=== PATIENT | male | born 1970 | race Two or more races ===

== ENCOUNTER 2020-03-11 10:56 | Inpatient (IN) | payer MEDICAID, SELFPAY ==
[~2020-03-11] VITALS: Ht 180.3 cm; Wt 96.3 kg
[2020-03-11] MEDS ORDERED: AZITHROMYCIN 500MG/ 250ML 250 ML IV ONE ×2 (11:20→11:30)
[2020-03-11] MEDS ORDERED: SODIUM CHLORIDE 0.9% 1,000 ML IV ONE (11:30)
[2020-03-11] MEDS ORDERED: ASCORBIC ACID 500 MG TAB ONE (11:34)
[2020-03-11] MEDS ORDERED: ASCORBIC ACID 500 MG TAB PO ONE ×2 (11:45→13:15)
[2020-03-11] MEDS ORDERED: hydrOXYchloroQUINE SULFATE 200 MG TAB PO ONE (11:45)
[2020-03-11] MEDS ORDERED: ZINC SULFATE 220mg CAP or TAB PO ONE ×2 (11:45→13:15)
[2020-03-11 11:56] LABS: Basophils # (auto) 0 10 ^3/uL (0-0.2); Basophils % (auto) 0.4 % (0.0-2.0); Eosinophils # (auto) 0 10 ^3/uL (0-0.8); Hematocrit 46.1 % (41.0-53.0); Hemoglobin 15.2 g/dL (13.5-17.5); Lymphocytes # (auto) 0.9 10 ^3/uL (0.4-5.4); Lymphocytes % (auto) 12.4 % (10.0-50.0); Mean Corpuscular Hemoglobin 29.1 pg (28.0-32.0); Mean Corpuscular Hgb Conc. 33.1 g/dL (32.0-36.0); Mean Corpuscular Volume 88.1 fL (80.0-100.0); Monocytes # (auto) 0.5 10 ^3/uL (0-1.3); Monocytes % (auto) 7.1 % (0.0-12.0); Neutrophils % (auto) 80.1 % (37.0-80.0); Nucleated Red Blood Cells % 0.4 %; Platelet Count (auto) 254 10^3/uL (140-450); Red Blood Cells 5.23 10^6/uL (4.5-5.90); Red Cell Distribution Width 13.5 % (11.8-14.3); White Blood Cell 7.5 10^3/uL (4.4-10.8)
[2020-03-11 12:06] LABS: Albumin 3.2 g/dL (3.4-5.0); Calcium 8.5 mg/dL (8.5-10.1); Potassium 3.6 mmol/L (3.5-5.1)
[2020-03-11 12:09] LABS: Bilirubin, Total 0.9 mg/dL (0.2-1.0); Total Protein 8.2 g/dL (6.4-8.2)
[2020-03-11 12:28] LABS: CRP High Sensitivity 12.6 mg/dL (< 0.3)
[2020-03-11] MEDS ORDERED: ACETAMINOPHEN 500 MG TAB PO PRN (12:45)
[2020-03-11] MEDS ORDERED: MORPHINE SULF INJ 2 MG/ML SYRINGE 1ML IV PRN (12:45)
[2020-03-11] MEDS ORDERED: ALBUTEROL SULF HFA 90MCG INH 200DOSE IN PRN (12:45)
[2020-03-11] MEDS ORDERED: NITROGLYCERIN 0.4 MG SL TAB SL PRN (12:45)
[2020-03-11] MEDS ORDERED: CHOLECALCIFEROL (VITD3) 1,000UNIT=25mCg TAB PO ONE (13:15)
[2020-03-11] MEDS ORDERED: AZITHROMYCIN 500MG/D5WorNS 250ml IV ONE (13:15)
[2020-03-11] MEDS ORDERED: ENOXAPARIN SOD 40 MG/0.4 ML SYRINGE SC ONE (13:15)
--- NOTE | 2020-03-11 13:36 | NUR ---
PT ASSESSED FOR MDI THERAPY. PT IS CURRENTLY ON 2LNC, SPO2 95%, HR 110, RR 16. LUNGS ARE CLEAR AND DECREASED. PT STATES HE DOES NOT TAKE RESPIRATORY MEDICATION AT HOME. PT DOES NOT WEAR HOME O2. PT STATES HE DOES NOT HAVE HISTORY OF RESPIRATORY DISEASES.
[2020-03-11] MEDS ORDERED: ALBUTEROL SULF HFA 90MCG INH 200DOSE IN SCH (14:00)
--- NOTE | 2020-03-11 14:15 | NUR ---
Telemetry admit from ER JARED [place]INGHAM admitted to Telemetry unit after SBAR received. Patient oriented to Pushpa Dubois, primary RN, unit, room, bed, and unit policies regarding patient care. Patient now on continuous telemetry monitoring, tele box #4 and telemetry reading on arrival to unit is SR @ 92. Patient placed on bedside oxygen 2L/NC. No s/s of sob/distress noted. Safety precautions in place, bed set lowest position/locked, bedside rails up x2, call light within reach. Instructed patient to call for assistance. Patient verbalized understanding. Will continue to monitor Q1hr and PRN.
[2020-03-11 17:00] VITALS: BP 132/87
--- NOTE | 2020-03-11 19:20 | NUR ---
ASSUMED CARE OF PATIENT: PATIENT IS AWAKE, ALERT AND ORIENTED X4, NO S/S OF SOB OR DISTRESS AND PT DENIES PAIN. RESPIRATIONS ARE EVEN AND UNLABORED, O2 SATURATIONS ARE 94% ON 2 L NC, PATIENT CONNECTED TO CONTINUOUS PULSE OXIMETRY MONITOR AND CARDIAC TELE MONITOR, TELE BOX #4 WITH CURRENT READING OF 81 BPM. BED IS LOW, LOCKED, TWO SIDE RAILS RAISED AND CALL LEWIS IS WITHIN REACH. PROVIDED EDUCATION REGARDING CALL LIGHT AND INCENTIVE SPIROMETRY WELL INSTRUCTED PATIENT ON POC AND TO CALL FOR ASSISTANCE. PATIENT VERBALIZED UNDERSTANDING. WILL CONTINUE TO MONITOR Q 1HR AND PRN.
--- NOTE | 2020-03-11 19:50 | NUR ---
FAMILY MEMBER CALLED TO SPEAK TO PRIMARY RN: SISTER MURALI CALLED AND PROVIDED PASSWORD AND REQUESTED INFORMATION REGARDING PATIENTS POC AND CURRENT HEALTH STATUS. 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
[2020-03-11 20:00] VITALS: BP 129/90
--- NOTE | 2020-03-12 06:37 | NUR ---
Respiratory note: PT AWAKE, AND ALERT. SPO2 92% ON 2 L NC, HR 84, RR 18, BS DIMINISHED. RESPIRATORY INTERVENTION NOT INDICATED. WILL CONTINUE TO MONITOR PT.
[2020-03-12 07:14] LABS: Basophils # (auto) 0 10 ^3/uL (0-0.2); Basophils % (auto) 0.6 % (0.0-2.0); Eosinophils # (auto) 0 10 ^3/uL (0-0.8); Hematocrit 42.3 % (41.0-53.0); Hemoglobin 14.4 g/dL (13.5-17.5); Lymphocytes # (auto) 0.9 10 ^3/uL (0.4-5.4); Lymphocytes % (auto) 15.1 % (10.0-50.0); Mean Corpuscular Hemoglobin 29.8 pg (28.0-32.0); Mean Corpuscular Volume 87.7 fL (80.0-100.0); Monocytes # (auto) 0.8 10 ^3/uL (0-1.3); Monocytes % (auto) 14.4 % (0.0-12.0); Neutrophils % (auto) 69.9 % (37.0-80.0); Nucleated Red Blood Cells % 0.1 %; Platelet Count (auto) 237 10^3/uL (140-450); Red Blood Cells 4.82 10^6/uL (4.5-5.90); Red Cell Distribution Width 13.9 % (11.8-14.3); White Blood Cell 5.7 10^3/uL (4.4-10.8)
--- NOTE | 2020-03-12 07:30 | NUR ---
OPENING NOTES ASSUMED CARE OF PATIENT. PATIENT ALERT AND ORIENTED, RESTING ON BED. CONTINUES PULSE OX MONITORING, O2 SATURATION 94% ON ROOM AIR. NO S/S OF SOB/DISTRESS NOTED. PATIENT DENIES ANY PAIN. SAFETY PRECAUTIONS IN PLACE. BED SET TO LOWEST POSITION/LOCKED. BEDSIDE RAILS UP X2. CALL LIGHT WITHIN REACH. INSTRUCTED PATIENT TO CALL FOR ASSISTANCE. UPDATED ON POC. PATIENT VERBALIZED UNDERSTANDING. WILL CONTINUE TO MONITOR Q1HR AND PRN.
[2020-03-12 07:37] LABS: Albumin 2.7 g/dL (3.4-5.0); BUN/Creatinine Ratio 12.8; Calcium 8.1 mg/dL (8.5-10.1); Potassium 3.6 mmol/L (3.5-5.1)
[2020-03-12 07:40] LABS: Bilirubin, Total 0.6 mg/dL (0.2-1.0); Total Protein 7.1 g/dL (6.4-8.2)
[2020-03-12 09:00] VITALS: BP 129/86
[2020-03-12] MEDS: ZINC SULFATE 220mg CAP or TAB PO SCH (09:23)
[2020-03-12] MEDS: cefTRIAXone 1GM/50ML D5W 50 ML IV SCH (09:23)
[2020-03-12] MEDS: ASCORBIC ACID 500 MG TAB PO SCH (09:24)
[2020-03-12] MEDS: CHOLECALCIFEROL (VITD3) 1,000UNIT=25mCg TAB PO SCH (09:24)
[2020-03-12] MEDS: ENOXAPARIN SOD 40 MG/0.4 ML SYRINGE SC SCH (09:28)
[2020-03-12] MEDS ORDERED: AZITHROMYCIN 500MG/D5WorNS 250ml IV SCH ×2 (10:00)
[2020-03-12] MEDS ORDERED: ENOXAPARIN SOD 40 MG/0.4 ML SYRINGE SC SCH (10:00)
[2020-03-12] MEDS ORDERED: CHOLECALCIFEROL (VITD3) 1,000UNIT=25mCg TAB PO SCH (10:00)
[2020-03-12 13:00] VITALS: BP 128/88
--- NOTE | 2020-03-12 14:20 | NUR ---
URINE SAMPLE URINE SAMPLE COLLECTED AND SENT TO LAB.
--- NOTE | 2020-03-12 15:19 | NUR ---
COVID SWAB PATIENT WAS RE-SWABBED BY FORREST SMITH AND AND SENT TO LAB WITH FORREST SMITH.
[2020-03-12 17:00] VITALS: BP 118/88
--- NOTE | 2020-03-12 19:29 | NUR ---
Opening Shift Note Assumed care of patient, awake and alert x 4. No S/S of distress/SOB.Patient on 2 l/min NC with some mild shortness of breath. Bed is in lowest position and locked. Call light within reach. Board upsate. Instructed on POC and to callfor assist PRN, will continue to monitor for changes Q1hr and PRN.
[2020-03-12 21:00] VITALS: BP 124/88
[2020-03-13 05:00] VITALS: BP 126/86
[2020-03-13 09:00] VITALS: BP 114/83
[2020-03-13] MEDS: cefTRIAXone 1GM/50ML D5W 50 ML IV SCH (10:10)
[2020-03-13] MEDS: ZINC SULFATE 220mg CAP or TAB PO SCH (10:11)
[2020-03-13] MEDS: ASCORBIC ACID 500 MG TAB PO SCH (10:15)
[2020-03-13] MEDS: ENOXAPARIN SOD 40 MG/0.4 ML SYRINGE SC SCH (10:16)
[2020-03-13] MEDS: AZITHROMYCIN 250 MG TAB PO SCH (10:16)
[2020-03-13] MEDS: CHOLECALCIFEROL (VITD3) 1,000UNIT=25mCg TAB PO SCH (10:16)
[2020-03-13 17:00] VITALS: BP 123/84
[2020-03-13 20:00] VITALS: BP 123/84
--- NOTE | 2020-03-13 20:04 | NUR ---
OPENING NOTES ASSUMED CARE OF PATIENT. PATIENT ALERT AND ORIENTED, AND EATING. CONTINUES PULSE OX MONITORING, O2 SATURATION 94% ON ROOM AIR. PATIENT EDUCATED ON PLACING OXYGEN BACK ON IF SOB NO S/S OF SOB/DISTRESS NOTED. PATIENT DENIES ANY PAIN. TEMPERATURE VIA AXILLARY 98.6.SAFETY PRECAUTIONS IN PLACE. BED SET TO LOWEST POSITION/LOCKED. BEDSIDE RAILS UP X2. CALL LIGHT WITHIN REACH. INSTRUCTED PATIENT TO CALL FOR ASSISTANCE. UPDATED ON POC. PATIENT VERBALIZED UNDERSTANDING. WILL CONTINUE TO MONITOR Q1HR AND PRN.
--- NOTE | 2020-03-13 21:49 | NUR ---
PATIENT EDUCATED ON HOW TO IS PATIENT VERBALIZED UNDERSTANDING
[2020-03-13 22:21] VITALS: BP 126/84
[2020-03-14 02:06] VITALS: BP 129/90
[2020-03-14 05:00] VITALS: BP 125/79
--- NOTE | 2020-03-14 07:00 | NUR ---
Opening Shift Note Received report on the patient. Awake lying in bed. Patient shows no signs of distress at this time. Discussed plan of care with the patient. Bed in lowest position, side rails up x2, and the call light is within reach. Will continue to monitor.
--- NOTE | 2020-03-14 07:05 | NUR ---
ENTERED ROOM TO ASSESS PATIENT. PATIENT VERBALIZED NO DISTRESS SOB OR PAIN. PATIENT IS USING THE RESTROOM
--- NOTE | 2020-03-14 07:26 | NUR ---
REPORT GIVEN TO DAYSHIFT RN. PATIENT DENIES SOB DISTRESS OR PAIN.
[2020-03-14 09:30] VITALS: BP 121/87
[2020-03-14] MEDS: ZINC SULFATE 220mg CAP or TAB PO SCH (10:36)
[2020-03-14] MEDS: cefTRIAXone 1GM/50ML D5W 50 ML IV SCH (10:36)
[2020-03-14] MEDS: ASCORBIC ACID 500 MG TAB PO SCH (10:36)
[2020-03-14] MEDS: AZITHROMYCIN 250 MG TAB PO SCH (10:37)
[2020-03-14] MEDS: CHOLECALCIFEROL (VITD3) 1,000UNIT=25mCg TAB PO SCH (10:37)
[2020-03-14] MEDS: ENOXAPARIN SOD 40 MG/0.4 ML SYRINGE SC SCH (10:37)
[2020-03-14 13:01] VITALS: BP 138/96
[2020-03-14 17:45] VITALS: BP 123/89
--- NOTE | 2020-03-14 19:30 | NUR ---
OPENING SHIFT NOTE: ASSUMED CARE OF PATIENT, HE IS AWAKE, ALERT AND ORIENTED X 4. NO S/S OF SOB OR DISTRESS AND PATIENT DENIES PAIN. PATIENT CONNECTED TO CONTINUOUS TELEMETRY AND O2 MONITORING, CURRENT READING IS HR 86 BPM, AND O2 93% ON 2 L NC. RESPIRATIONS ARE EVEN AND UNLABORED. CLUSTER CARE GIVEN USING PROVIDED PPE AND SAFETY MEASURES IN PLACE. BED IS LOW, LOCKED, TWO SIDE RAILS RAISED, AND CALL LEWIS IS WITHIN REACH. INSTRUCTED PT ON POC AND TO CALL IF HE NEEDS ANYTHING, PATIENT VERBALIZED UNDERSTANDING. WILL CONTINUE TO MONITOR Q 1HR AND PRN.
[2020-03-14 20:00] VITALS: BP 140/92
--- NOTE | 2020-03-14 23:33 | NUR ---
PATIENT REMOVED NASAL CANULA TO GO TO THE BATHROOM AND O2 SATURATION DROPPED TO 86%, INSTRUCTED PATIENT TO PLACE NASAL CANULA BACK IN NOSTRILS, O2 IS NOW BACK UP TO 91% ON 2 L NC. WILL CONTINUE TO MONITOR.
[2020-03-15] VITALS: BP 121/86
[2020-03-15 04:00] VITALS: BP 127/88
--- NOTE | 2020-03-15 06:48 | NUR ---
Respiratory note: ASSESSED PT IN PROPER PPE. PT IS AWAKE AND ALERT. NO S/S OF RESPIRATORY DISTRESS. PT SPO2 94% ON 1 L NASAL CANNULA, HR 77, RR 16. WILL CONTINUE TO MONITOR PT.
[2020-03-15 09:00] VITALS: BP 123/86
[2020-03-15] MEDS: cefTRIAXone 1GM/50ML D5W 50 ML IV SCH (10:51)
[2020-03-15] MEDS: ZINC SULFATE 220mg CAP or TAB PO SCH (10:51)
[2020-03-15] MEDS: ASCORBIC ACID 500 MG TAB PO SCH (10:52)
[2020-03-15] MEDS: ENOXAPARIN SOD 40 MG/0.4 ML SYRINGE SC SCH (10:52)
[2020-03-15] MEDS: AZITHROMYCIN 250 MG TAB PO SCH (10:52)
[2020-03-15] MEDS: CHOLECALCIFEROL (VITD3) 1,000UNIT=25mCg TAB PO SCH (10:52)
[2020-03-15 13:00] VITALS: BP 129/94
--- NOTE | 2020-03-15 14:19 | NUR ---
assessment Patient is a 49 year old male who is alert and oriented. Patients cognitive abilities are intact. Prior to admission patient lived home with family and functioned independently. Patient informed me he is able to care for his own ADLs. Per patient he will return home to his prior living arrangements post discharge and family will transport him home. Patient informed me he was having shortness of breath and came to ER and was admitted. Patient is Covid 19 positive. Patients PCP is Dr Morocho. Patient has no safety concerns regarding returning home on discharge. Patient may need home 02 on discharge. I informed patient he has a right to speak to a child welfare social worker regarding all care. I informed patient he has a right to participate in any and all discharge planning. Patient does not have a POA and advanced directive. I have offered patient information on POA and advanced directives. I informed the patient the advantages and benefits of having an Advanced Directive. Patient verbalized understanding and agreed to discharge plan. Addendum: 03/15/20 at 1433 by Candelaria SHARMA Amended: Links added.
--- NOTE | 2020-03-15 19:20 | NUR ---
OPENING SHIFT NOTE: PATIENT IS AWAKE, ALERT, AND ORIENTED X4, SITTING UP IN BED WITHOUT HIS NASAL CANULA IN, O2 SATS AT 88%. NASAL CANULA PLACED BACK ON PATIENT AND O2 SATS ARE NOW 92% ON 2L. NO S/S OF DISTRESS/SOB. CLUSTER CARE PROVIDED IN PROVIDED PPE. SAFETY MEASURES IMPLEMENTED, BED IS LOW, LOCKED, TWO SIDE RAILS RAISED, AND CALL LEWIS WITHIN REACH. INSTRUCTED ON POC AND TO CALL IF HE NEEDS ANYTHING, PATIENT VERBALIZED UNDERSTANDING. WILL CONTINUE TO MONITOR Q 1HR AND PRN.
[2020-03-15 20:00] VITALS: BP 123/90
--- NOTE | 2020-03-15 23:30 | NUR ---
SISTER CALLED AND PROVIDED PASSWORD, ASKED ABOUT POC AND WHEN PATIENT WOULD BE DISCHARGED. SHE INFORMED ME THAT THEY ARE TRYING TO FIGURE OUT WHERE HE WILL STAY WHEN HE GOES HOME AND THEY DON'T HAVE ANYONE TO PICK HIM UP OR A PLACE FOR HIM TO STAY UNTIL MONDAY 03/19.
[2020-03-16] VITALS: BP 144/99
--- NOTE | 2020-03-16 | NUR ---
PATIENT RESTING COMFORTABLY, RESPIRATIONS ARE EVEN, UNLABORED, AND O2 SATURATION IS AT 90% ON 2L NC.
[2020-03-16 04:00] VITALS: BP 136/95
[2020-03-16 08:00] VITALS: BP 144/95
[2020-03-16] MEDS: cefTRIAXone 1GM/50ML D5W 50 ML IV SCH (08:15)
--- NOTE | 2020-03-16 08:30 | NUR ---
Received pt resting in bed, call light within reach, pt reports feeling better, no pain noted or reported at this time, will continue to monitor pt.
[2020-03-16] MEDS: ZINC SULFATE 220mg CAP or TAB PO SCH (09:31)
[2020-03-16] MEDS: AZITHROMYCIN 250 MG TAB PO SCH (09:31)
[2020-03-16] MEDS: CHOLECALCIFEROL (VITD3) 1,000UNIT=25mCg TAB PO SCH (09:31)
[2020-03-16] MEDS: ASCORBIC ACID 500 MG TAB PO SCH (09:32)
[2020-03-16] MEDS: ENOXAPARIN SOD 40 MG/0.4 ML SYRINGE SC SCH (09:32)
[2020-03-16 12:00] VITALS: BP 135/93
--- NOTE | 2020-03-16 15:27 | NUR ---
Nutrition Assessment Notes Please refer to link for full assessment notes. Est energy needs: [id number] kcals (22-25 kcal/kgIBW) Est protein needs: 97-129 gms/day (1.2-1.6 gm/kgBW) Will continue to monitor and reassess prn. Addendum: 03/16/20 at [address] Amended: Links added.
[2020-03-16 17:00] VITALS: BP 135/90
--- NOTE | 2020-03-16 19:20 | NUR ---
Opening Shift Note Assumed care of patient, awake and alert. No S/S of distress/SOB or pain. Bed in lowest locked position, side rails up x2, call light within reach, COVID [address]. Instructed on POC and to call for assist PRN, will continue to monitor for changes Q1hr and PRN. Addendum: 03/16/20 at 2246 by NOLBERTO SHARMA RN RN ADDITION: Patient educated on use of incentive spirometer, patient verbalized understanding. Will continue to enforce education throughout shift and continue to monitor.
[2020-03-16 21:00] VITALS: BP 150/69
[2020-03-17] VITALS: BP 121/76
[2020-03-17 05:00] VITALS: BP 138/95
--- NOTE | 2020-03-17 05:00 | NUR ---
Nasal cannula removed while patient sleeping throughout shift, patient's oxygen saturation 86% - 90% on room air during those times. Patient educated on importance of keeping nasal cannula on, oxygenation at 90% - 93% with nasal cannula on. No s/s of distress. Will continue to monitor.
--- NOTE | 2020-03-17 06:34 | NUR ---
Closing Note Patient lying in bed, awake and alert. No s/s of distress. Bed in lowest locked position, side rails up x2, call light within reach, COVID [address] Oxygen saturation at 92%. Will continue to monitor and endorse care to dayshift RN.
--- NOTE | 2020-03-17 08:00 | NUR ---
OPENING SHIFT NOTE: PATIENT RESTING IN BED HIGH FOWLERS. ALERT AND ORIENTED X4. PATIENT DENIES SOB AND DISTRESS AT THIS TIME. PATIENT UPDATED ON POC. BED IN LOWEST LOCKED POSITION WITH CALL LIGHT WITHIN REACH. WILL CONTINUE CARE.
--- NOTE | 2020-03-17 08:15 | NUR ---
PATIENT OFF OXYGEN INSTRUCTED TO AMBULATE IN ROOM.
[2020-03-17 09:00] VITALS: BP 137/93
[2020-03-17] MEDS: cefTRIAXone 1GM/50ML D5W 50 ML IV SCH (09:23)
[2020-03-17] MEDS: CHOLECALCIFEROL (VITD3) 1,000UNIT=25mCg TAB PO SCH (09:24)
[2020-03-17] MEDS: AZITHROMYCIN 250 MG TAB PO SCH (09:24)
[2020-03-17] MEDS: ENOXAPARIN SOD 40 MG/0.4 ML SYRINGE SC SCH (09:24)
[2020-03-17] MEDS ORDERED: MULTIPLE VITAMINS W/ MINERALS TAB PO SCH (10:00)
[2020-03-17] MEDS ORDERED: metroNIDAZOLE 500 MG TAB PO ONE (14:30)
--- NOTE | 2020-03-17 14:34 | NUR ---
SPOKE TO Davidson SHEPARD OVER THE PHONE REGARDING PATIENT STATUS. INFORMED PATIENT HAS BEEN OFF OXYGEN SINCE THIS MORNING SATURATING 90-94%.
--- NOTE | 2020-03-17 16:36 | NUR ---
PER Davidson ASTUDILLO TO SEND PATIENT HOME WITHOUT OXYGEN AND NO NEW PRESCRIPTIONS.
--- NOTE | 2020-03-17 16:37 | NUR ---
Discharge instructions given as ordered. Encourage to follow up with PMD as instructed. Instructed to self-isolate for 4 weeks. Provided with covid-19 forms. All questions and concerns addressed. Patient verbalized understanding. Medication reconciliation form completed and copy given to patient. iv discontinued. patient tolerated well. site is free of any redness or warmth. catheter intact. pressure dressing applied. Telemetry unit returned to ICU. Patient taken to vehicle via wheelchair with all personal belongings, accompanied by staff and family member. No distress noted at time of departure.
[2020-03-17] MEDS ORDERED: metroNIDAZOLE 500 MG TAB PO SCH (22:00)
--- NOTE | 2020-03-19 08:52 | NUR ---
Weekend director loss prevention-I received a phone call from Dr. Loera letting me know that this patient will need home oxygen for 2 weeks due to being COVID-19 + . I called [facility] and was told that they do still require that an ABG be done to qualify patient for home oxygen. Received a message from Dr. Loera that patient is actually now weaned off oxygen and can go home without it.
== END 2020-03-17 16:38 | disposition home or self-care (01) | DRG 720 ==
LOC: ER 10:56 → TELE 10:57 → TELE-EAST 14:16
PROVIDERS: ADMIT Nurse Practitioner Acute Care; ATTEND Internal Medicine Nephrology
DX: A41.9 Sepsis, unspecified organism (principal); U07.1 COVID-19; J96.01 Acute respiratory failure with hypoxia; R65.20 Severe sepsis without septic shock; E66.9 Obesity, unspecified; J98.11 Atelectasis; J12.89 Other viral pneumonia; E78.5 Hyperlipidemia, unspecified; Z78.9 Other specified health status; R19.7 Diarrhea, unspecified; Z68.29 Body mass index [BMI] 29.0-29.9, adult
CPT/HCPCS: 36415; 71045; 80053; 82728; 83605; 83615; 83735; 84484; 85025; 85379; 86141; 87040; 87070; 87804; 87880; 93005; 96365; 96366; 96372; 99291; G0378; J0696